=== PATIENT | male | born 1970 | race Caucasian/White ===

== ENCOUNTER 2016-06-16 19:56 | Observation (INO) | payer OTHER ==
[2016-06-16] MEDS ORDERED: NS 0.9% 1000 ML* 1,000 ML IV ONE (20:39)
[2016-06-16] MEDS ORDERED: Aspirin Low Dose CHEW TAB* 81 MG PO ONE (20:39)
[2016-06-16 20:46] LABS: Hematocrit 45 % (42-52); Hemoglobin 15.1 g/dl (14.0-18.0); Mean Corpuscular HGB Conc 34 g/dl (31-36); Mean Corpuscular Hemoglobin 31 pg (27-31); Mean Corpuscular Volume 92 fL (80-94); Mean Platelet Volume 8 um3 (7.4-10.4); Red Blood Count 4.89 10^6/ul (4.0-5.4); Red Cell Distribution Width 13 % (10.5-15); White Blood Count 10.3 10^3/ul (3.5-10.8)
[2016-06-16 20:59] LABS: ALT 36 U/L (7-52); AST 21 U/L (13-39); Albumin 4.2 g/dL (3.2-5.2); Alkaline Phosphatase 73 U/L (34-104); Anion Gap 6 mmol/L (2-11); BUN/Creatinine Ratio 11.7 (8-20); Blood Urea Nitrogen 11 mg/dL (6-24); C Reactive Protein < 1.00 mg/L (< 5.00); CO2 Carbon Dioxide 25 mmol/L (22-32); Calcium 9.3 mg/dL (8.6-10.3); Chloride 101 mmol/L (101-111); Creatine Kinase 133 U/L (10-223); EGFR African American 111.1 (>60); EGFR Non-African American 86.4 (>60); Globulin 3.1 g/dL (2-4); Glucose 106 mg/dL (70-100); Lipase 36 U/L (11.0-82.0); Magnesium 2.1 mg/dL (1.9-2.7); Potassium 3.2 mmol/L (3.5-5.0); Sodium 132 mmol/L (133-145); Total Protein 7.3 g/dL (6.4-8.9)
--- NOTE | 2016-06-16 21:01 | RAD ---
INDICATION: Chest pain COMPARISON: None TECHNIQUE: An AP portable view obtained at 2 hours is submitted. FINDINGS: Bones/Soft Tissues: There are no acute bony findings. Cardiomediastinal: The cardiomediastinal silhouette is normal. Lungs: There are no infiltrates. Pleura: There are no pleural effusions. Other: None IMPRESSION: NO ACTIVE DISEASE
[2016-06-16 21:23] LABS: TSH (Thyroid Stimulating Horm) 0.91 mcIU/mL (0.34-5.60)
[2016-06-16 21:59] LABS: Urine Bacteria 1+ (Absent); Urine Bilirubin Negative (Negative); Urine Glucose Negative (Negative); Urine Nitrite Negative (Negative)
--- NOTE | 2016-06-16 22:33 | ED ---
Feliberto Vazquez Alok, scribed for Herve Mai MD on 06/16/16 at 2030 . HPI Chest Pain - HPI Summary HPI Summary: 46 y/o male presents to the ED for CP accompanied by dizziness and SOB while at rest today at 1815. 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 Pt CP was located at the left side of his chest and felt like a burning, stabbing sensation which did not radiate to other parts of the body. Pt states nothing makes his symptoms better or worse. Pt denies nausea, diaphoresis, or edema. PMHx includes HTN and hx of WBW as well as panic attacks. PT is also an opiate user and has been clean for the past 8 days. - History of Current Complaint Chief Complaint: EDChestPainROMI Time Seen by Provider: 06/16/16 20:13 Hx Obtained From: Patient Onset/Duration: Started Hours Ago, Atraumatic, Still Present Timing: Constant Initial Severity: Moderate Current Severity: Mild Pain Intensity: 1 Pain Scale Used: 0-10 Numeric Chest Pain Location: Discrete at:, Right Anterior Chest Pain Radiates: No Character: Burning, Sharp/Stabbing Aggravating Factor(s): Nothing Alleviating Factor(s): Nothing - Allergy/Home Medications Allergies/Adverse Reactions: Allergies Allergy/AdvReac Type Severity Reaction Status Date / Time No Known Allergies Allergy Verified 11/08/12 14:08 PMH/Surg Hx/FS Hx/Imm Hx Endocrine/Hematology History: Denies: Hx Diabetes, Hx Thyroid Disease Cardiovascular History: Reports: Other Cardiovascular Problems/Disorders - WBW ( congenital heart defect) Denies: Hx Hypertension Respiratory History: Denies: Hx Asthma, Hx Chronic Obstructive Pulmonary Disease (COPD) GI History: Denies: Hx Ulcer History: Reports: Hx Kidney Stones Neurological History: Reports: 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 STENT/ESWL FOR KIDNEY STONE Infectious Disease History: No Infectious Disease History: Denies: Hx Clostridium Difficile, Hx Hepatitis, Hx Human Immunodeficiency Virus (HIV), Hx of Known/Suspected MRSA, Hx Shingles, Hx Tuberculosis, Traveled Outside the [place] in Last 30 Days - Family History Known Family History: Positive: Cardiac Disease - [place] (Brother, age 40), Other - Yes- Alcohol abuse - Social History Alcohol Use: Occasionally Substance Use Type: Reports: None Hx Tobacco Use: Yes Smoking Status (MU): Heavy Every Day Tobacco Smoker Review of Systems Negative: Fever, Skin Diaphoresis Positive: Chest Pain Positive: Shortness Of Breath Negative: Nausea Negative: Edema Neurological: Other - Dizziness All Other Systems Reviewed And Are Negative: Yes Physical Exam Triage Information Reviewed: Yes Vital Signs On Initial Exam: Initial Vitals Temp Pulse Resp BP Pulse Ox 99.1 F 78 14 135/91 97 06/16/16 20:09 06/16/16 20:09 06/16/16 20:09 06/16/16 20:09 06/16/16 20:09 Vital Signs Reviewed: Yes Appearance: Positive: Well-Appearing, No Pain Distress Skin: Positive: Warm, Skin Color Reflects Adequate Perfusion, Dry Head/Face: Positive: Normal Head/Face Inspection Eyes: Positive: EOMI, COREEN ENT: Positive: Normal ENT inspection Neck: Positive: Supple, Nontender Respiratory/Lung Sounds: Positive: Clear to Auscultation, Breath Sounds Present Cardiovascular: Positive: RRR Abdomen Description: Positive: Nontender, Soft Bowel Sounds: Positive: Present Musculoskeletal: Positive: Normal, Strength/ROM Intact Neurological: Positive: Normal, Sensory/Motor Intact, Alert, Oriented to Person Place, Time Psychiatric: Positive: Affect/Mood Appropriate Diagnostics - Vital Signs Vital Signs Temp Pulse Resp BP Pulse Ox 06/16/16 20:09 99.1 F 86 14 135/91 98 - Laboratory Lab Results: Lab Results 06/16/16 06/16/16 06/16/16 Range/Units 20:25 20:25 20:25 WBC 10.3 (3.5-10.8) 10^3/ul RBC 4.89 (4.0-5.4) 10^6/ul Hgb 15.1 (14.0-18.0) g/dl Hct 45 (42-52) % MCV 92 (80-94) fL MCH 31 (27-31) pg MCHC 34 (31-36) g/dl RDW 13 (10.5-15) % Plt Count 228 (150-450) 10^3/ul MPV 8 (7.4-10.4) um3 Neut % (Auto) 67.8 (38-83) % Lymph % (Auto) 25.5 (25-47) % [place] % (Auto) 5.0 (1-9) % Eos % (Auto) 1.1 (0-6) % Baso % (Auto) 0.6 (0-2) % Absolute Neuts (auto) 7.0 (1.5-7.7) 10^3/ul Absolute Lymphs (auto) 2.6 (1.0-4.8) 10^3/ul Absolute Monos (auto) 0.5 (0-0.8) 10^3/ul Absolute Eos (auto) 0.1 (0-0.6) 10^3/ul Absolute Basos (auto) 0.1 (0-0.2) 10^3/ul Absolute Nucleated RBC 0.01 10^3/ul Nucleated RBC % 0 INR (Anticoag Therapy) 0.92 (0.89-1.11) APTT 31.2 (26.0-36.3) seconds D-Dimer, Quantitative < 200 (Less Than 230) ng/mL Sodium 132 L (133-145) mmol/L Potassium 3.2 L (3.5-5.0) mmol/L Chloride 101 (101-111) mmol/L Carbon Dioxide 25 (22-32) mmol/L Anion Gap 6 (2-11) mmol/L BUN 11 (6-24) mg/dL Creatinine 0.94 (0.67-1.17) mg/dL Est GFR ( Amer) 111.1 (>60) Est GFR (Non-Af Amer) 86.4 (>60) BUN/Creatinine Ratio 11.7 (8-20) Glucose 106 H (70-100) mg/dL Lactic Acid (0.5-2.0) mmol/L Calcium 9.3 (8.6-10.3) mg/dL Magnesium 2.1 (1.9-2.7) mg/dL Total Bilirubin 0.30 (0.2-1.0) mg/dL AST 21 (13-39) U/L ALT 36 (7-52) U/L Alkaline Phosphatase 73 (34-104) U/L Total Creatine Kinase 133 (10-223) U/L CK-MB (CK-2) 1.0 (0.6-6.3) ng/mL Troponin I 0.00 (<0.04) ng/mL C-Reactive Protein < 1.00 (< 5.00) mg/L Total Protein 7.3 (6.4-8.9) g/dL Albumin 4.2 (3.2-5.2) g/dL Globulin 3.1 (2-4) g/dL Albumin/Globulin Ratio 1.4 (1-3) Lipase 36 (11.0-82.0) U/L TSH 0.91 (0.34-5.60) mcIU/mL Urine Color Urine Appearance Urine pH (5-9) Ur Specific [place] (1.010-1.030) Urine Protein (Negative) Urine Ketones (Negative) Urine Blood (Negative) Urine Nitrate (Negative) Urine Bilirubin (Negative) Urine Urobilinogen (Negative) Ur Leukocyte Esterase (Negative) Urine WBC (Auto) (Absent) Urine RBC (Auto) (Absent) Ur Squamous Epith Cells (Absent) Urine Bacteria (Absent) Urine Glucose (Negative) 06/16/16 06/16/16 Range/Units 20:25 21:40 WBC (3.5-10.8) 10^3/ul RBC (4.0-5.4) 10^6/ul Hgb (14.0-18.0) g/dl Hct (42-52) % MCV (80-94) fL MCH (27-31) pg MCHC (31-36) g/dl RDW (10.5-15) % Plt Count (150-450) 10^3/ul MPV (7.4-10.4) um3 Neut % (Auto) (38-83) % Lymph % (Auto) (25-47) % [place] % (Auto) (1-9) % Eos % (Auto) (0-6) % Baso % (Auto) (0-2) % Absolute Neuts (auto) (1.5-7.7) 10^3/ul Absolute Lymphs (auto) (1.0-4.8) 10^3/ul Absolute Monos (auto) (0-0.8) 10^3/ul Absolute Eos (auto) (0-0.6) 10^3/ul Absolute Basos (auto) (0-0.2) 10^3/ul Absolute Nucleated RBC 10^3/ul Nucleated RBC % INR (Anticoag Therapy) (0.89-1.11) APTT (26.0-36.3) seconds D-Dimer, Quantitative (Less Than 230) ng/mL Sodium (133-145) mmol/L Potassium (3.5-5.0) mmol/L Chloride (101-111) mmol/L Carbon Dioxide (22-32) mmol/L Anion Gap (2-11) mmol/L BUN (6-24) mg/dL Creatinine (0.67-1.17) mg/dL Est GFR ( Amer) (>60) Est GFR (Non-Af Amer) (>60) BUN/Creatinine Ratio (8-20) Glucose (70-100) mg/dL Lactic Acid 0.8 (0.5-2.0) mmol/L Calcium (8.6-10.3) mg/dL Magnesium (1.9-2.7) mg/dL Total Bilirubin (0.2-1.0) mg/dL AST (13-39) U/L ALT (7-52) U/L Alkaline Phosphatase (34-104) U/L Total Creatine Kinase (10-223) U/L CK-MB (CK-2) (0.6-6.3) ng/mL Troponin I (<0.04) ng/mL C-Reactive Protein (< 5.00) mg/L Total Protein (6.4-8.9) g/dL Albumin (3.2-5.2) g/dL Globulin (2-4) g/dL Albumin/Globulin Ratio (1-3) Lipase (11.0-82.0) U/L TSH (0.34-5.60) mcIU/mL Urine Color Yellow Urine Appearance Clear Urine pH 6.0 (5-9) Ur Specific [place] 1.006 L (1.010-1.030) Urine Protein Negative (Negative) Urine Ketones Negative (Negative) Urine Blood Negative (Negative) Urine Nitrate Negative (Negative) Urine Bilirubin Negative (Negative) Urine Urobilinogen Negative (Negative) Ur Leukocyte Esterase 2+ H (Negative) Urine WBC (Auto) 2+(11-20/hpf) H (Absent) Urine RBC (Auto) 1+(3-5/hpf) H (Absent) Ur Squamous Epith Cells Present H (Absent) Urine Bacteria 1+ H (Absent) Urine Glucose Negative (Negative) Result Diagrams: 06/16/16 20:25 06/16/16 20:25 Lab Statement: Any lab studies that have been ordered have been reviewed, and results considered in the medical decision making process. - Radiology CXR Xray Interpretation: Positive (See Comments) - IMPRESSION: NO ACTIVE DISEASE. Radiology Interpretation Completed By: Radiologist - EKG 2019 Cardiac Rate: NL - 81 bpm EKG Rhythm: Sinus Rhythm ST Segment: Normal Ectopy: None Re-Evaluation - Re-Evaluation First Eval Re-Evaluation Time: 22:18 Chest Pain Course/Dx - Course Course Of Treatment: NO CRITICAL CARE TIME Assessment/Plan: CHEST PAIN FREE IN ED. ADMIT HOSPITALIST STABLE. - Diagnoses Provider Diagnoses: Chest pain - Provider Notifications Discussed Care Of Patient With: Dr. Chavez (Hospitalist) @ 3495 Discharge - Discharge Plan Condition: Stable Disposition: ADMITTED TO [facility] Referrals: No Primary Care Phys,NOPCP [Primary Care Provider] - The documentation as recorded by the Feliberto pang Alok accurately reflects the service I personally performed and the decisions made by me, Herve Mai MD.
[2016-06-16] MEDS ORDERED: Acetaminophen SUPP* 650 MG SUPP PR PRN (23:00)
[2016-06-17 03:48] LABS: HDL Cholesterol 23.4 mg/dL
[2016-06-17] MEDS ORDERED: Heparin VIAL(*) 5000 UNITS/ML VIAL (FIVE THOUSAND) SUBCUT SCH (06:00)
[2016-06-17 08:32] VITALS: BP 118/77
--- NOTE | 2016-06-17 09:41 | ECHO ---
Patient: NOÉ POTTER [facility] Rec#: [id number] : 1970 Date: 06/17/2016 Age: 46y Height: 167.64 cm / 66.0 in Weight: 68.95 kg / 152.0 lbs Sex: M BSA: 1.78 Room#: 452 Admit Date#: 06/16/2016 Type: Inpatient Referring: Sony Chavez MD Reading: Sammy Espana DO Organizational Psychologist: Meseret Singh RDCS Organizational Psychologist: Sonya Lr CC: Britney Lynn MD Transthoracic Echocardiogram Indication: Chest Pain BP: 111/72 HR: 61 Rhythm: NSR Findings History: HTN, WPW, opiate use, smoker. Technical Comments: The study quality is good. The study is technically limited due to the patient's smoking history. Completed at 0830. Left Ventricle: The left ventricular chamber size is normal. There is no left ventricular hypertrophy. Global left ventricular wall motion and contractility are within normal limits. There is normal left ventricular systolic function. The estimated ejection fraction is 55-60%. Normal left ventricular diastolic filling is observed. Left Atrium: The left atrial chamber size is normal. Right Ventricle: The right ventricular chamber size and systolic function are within normal limits. Right Atrium: The right atrial cavity size is normal. Aortic Valve: The aortic valve is trileaflet. There is no evidence of aortic valve thickening. There is no evidence of aortic regurgitation. There is no evidence of aortic stenosis. Mitral Valve: The mitral valve appears normal in structure and function. There is a trace of mitral regurgitation. There is no evidence of mitral stenosis. Tricuspid Valve: The tricuspid valve leaflets are normal. There is mild tricuspid regurgitation. No pulmonary hypertension is noted. There is no tricuspid stenosis. Pulmonic Valve: The pulmonic valve appears normal. There is no evidence of pulmonic regurgitation. There is no pulmonic stenosis. Pericardium: There is no significant pericardial effusion. Aorta: There is no dilatation of the ascending aorta. There is no dilatation of the aortic arch. There is no dilation of the aortic root. Pulmonary Artery: The main pulmonary artery is not well visualized. Venous: The inferior vena cava appears normal in size. There is a greater than 50% respiratory change in the inferior vena cava dimension. Conclusions The left ventricular chamber size is normal. There is normal left ventricular systolic function. The estimated ejection fraction is 55-60%. Global left ventricular wall motion and contractility are within normal limits. The left atrial chamber size is normal. The right ventricular chamber size and systolic function are within normal limits. There is centrally directed mild tricuspid regurgitation. Cardiac valves appear normal on transthoracic imaging. This is a good quality study. No prior echocardiograms available for comparison at time of interpretation. Measurements Name Value Normal Range RVIDd (AP) 2D 2.8 cm (0.9 - 2.6) RVDdMajor (2D) 3.8 cm (2.2 - 4.4) RAd ISD 4CH 4.1 cm (3.4 - 4.9) RA (A4C)W 4.3 cm (2.9 - 4.6) IVSd (2D) 1 cm (0.6 - 1) LVPWd (2D) 0.7 cm (0.6 - 1) LVIDd (2D) 5.36 cm (3.6 - 5.4) LVIDs (2D) 3.7 cm - LV FS (2D) 31 % (25 - 45) Aortic Annulus 2 cm (1.4 - 2.6) Ao root diameter (2D) 3.3 cm (2.1 - 3.5) Ascending Ao 2.8 cm (2.1 - 3.4) Aortic arch 2.8 cm (1.8 - 3.4) LA dimension (AP) 2D 3.3 cm (2.3 - 3.8) LAd ISD 4CH 5.1 cm (2.9 - 5.3) LA ISD 4CH W 4.1 cm (2.5 - 4.5) Name Value Normal Range LA ESV SP 4CH (A/L) 41 ml - LA ESV SP 2CH (A/L) 58 ml - LA ESV BP (A/L) 49 ml - LA ESV BP (A/L) index 27.7 ml/m2 - LA ESV SP 4CH (MOD) 39 ml - LA ESV SP 2CH (MOD) 52 ml - Name Value Normal Range MV E-wave Vmax 0.53 m/sec - MV deceleration time 286 msec - MV A-wave Vmax 0.37 m/sec - MV E:A ratio 1.42 ratio - LV septal e' Vmax 0.1 m/sec - LV lateral e' Vmax 0.12 m/sec - LV E:e' septal ratio 5.3 ratio - LV E:e' lateral ratio 4.42 ratio - Name Value Normal Range AV Vmax 1.2 m/sec - AV VTI 25.3 cm - AV peak gradient 5.76 mmHg - AV mean gradient 3.75 mmHg - LVOT Vmax 1 m/sec - LVOT VTI 18.95 cm - LVOT peak gradient 3.79 mmHg - LVOT mean gradient 1.84 mmHg - LILA Vmax 0.6 m/sec - Name Value Normal Range TR Vmax 2.5 m/sec - TR peak gradient 25 mmHg - RAP 3 mmHg - RVSP 28 mmHg - IVC diameter 1.3 cm - Name Value Normal Range PV Vmax 0.76 m/sec - PV peak gradient 2.33 mmHg -
--- NOTE | 2016-06-17 11:28 | RAD ---
Edited for charges. INDICATION: Chest pain. COMPARISON: There are no prior studies available for comparison. Technique: A single day myocardial perfusion stress study was performed. Initially a resting study was performed. The patient was given an intravenous injection of 10.3 mCi of technetium 99m tetrofosmin and and the heart was imaged in multiple projections. The patient returned later in the day and under the direction of Dr. Osorio, the patient was exercised to a peak heart rate of 167 beats per minute which was 96% of the maximum predicted heart rate. Subsequently the patient was given intravenous injection of 25.6 mCi of technetium 99m tetrofosmin and the heart was imaged in multiple projections. Images were reconstructed in the axial, sagittal and coronal planes and in a 3- D format. FINDINGS: There appears to be normal wall motion and myocardial thickening. The left ventricular ejection fraction was calculated to be 65%. Review of the images demonstrates normal distribution of radiopharmaceutical. IMPRESSION: NO EVIDENCE FOR INFARCT OR ISCHEMIA. ASSESSMENT: Low risk Based on imaging criteria from ACC/AHA 2002 Guideline Update for the Management of Patients With Chronic Stable Angina Table 23. Noninvasive Risk Stratification. MTDD
--- NOTE | 2016-06-17 11:29 | DCNOTE ---
Patient seen this morning. Says he feels well. Symptoms resolved shortly after coming up to the floor last night and have not recurred. States chest pain was pleuritic in nature. Says he gets panic attacks at times which result in SOB which he had yesterday but the CP is unusual. On exam, middle-aged M, laying in bed in NAD, poor dentition, RRR, s1 and s2 present, no m/g/r, lungs CTA B/L, no w/r/r, no LE edema. Echo unremarkable, troponin WNL, stress test was negative. Answered all of patient's and daughter's questions. Plan to discharge home today. Counseled on smoking cessation. F/U with PCP as outpatient.
--- NOTE | 2016-06-17 14:03 | HP ---
HISTORY AND PHYSICAL: DATE OF ADMISSION: 06/16/16 CHIEF COMPLAINT: Chest pain. HISTORY OF PRESENT ILLNESS: The patient is a 46-year-old, who says a couple of weeks ago, he had some chest pain, but eventually went away, so he did not think much of it. He has been feeling off as he puts it recently as well. In fact, he went to his PCP, who ended up saying his blood pressure was high and he was put on lisinopril a couple of days ago. After work today, he got home and at 6 p.m., he has felt he had chest pain and could not breathe. He has a history of panic attacks and thought it could be that. He tried to relax and it went away, but came back. The chest pain went to his left arm and neck. He went to the bedroom to get comfortable, but it did not get any better. It was 5 -6/10 in severity. He also had trouble breathing. He got 4 baby aspirin and does not recall getting any nitroglycerin, but says his pain eventually went away. He says the pain does increase with deep breathing, however, and he has no nausea or vomiting. PAST MEDICAL HISTORY: Significant for hypertension, recent diagnosis of nephrolithiasis, and depression. CURRENT MEDICATIONS: Include: 1. Lisinopril/hydrochlorothiazide 20/12.5. 2. Zoloft 50 mg a day. ALLERGIES: He has no known drug allergies. FAMILY HISTORY: Mother is alive, has diabetes. Father is in a penitentiary, has [place]'s. SOCIAL HISTORY: He smokes 1-1/2 packs a day for about 30 years. No alcohol. He has shot up narcotics including morphine, most recently 2 weeks ago. He works in . He is a . He has 1 daughter. REVIEW OF SYSTEMS: A 14-point review of systems was completed with the patient. All pertinent positives and negatives are in the history of present illness, otherwise negative. PHYSICAL EXAMINATION GENERAL: Pleasant gentleman, lying in bed, in no acute distress. VITAL SIGNS: Temperature 98.4 degrees, heart rate 74 beats per minute, respiratory rate 18 breaths per minute, pulse ox 97%, and blood pressure 111/72. HEENT: Normocephalic, atraumatic. Pupils equal, round, and reactive to light. Moist mucous membranes. NECK: Supple. No JVD, bruits, palpable thyroid, or lymphadenopathy. CHEST: Clear to auscultation and percussion bilaterally. CARDIOVASCULAR: S1, S2 appreciated. ABDOMEN: Positive bowel sounds in all 4 quadrants. Soft, nontender, and nondistended. EXTREMITIES: No cyanosis, clubbing, or edema. +2 peripheral pulses bilaterally. NEURO: Alert and oriented x3. Moves all extremities. SKIN: No rashes or abnormalities. DIAGNOSTIC STUDIES/LAB DATA: White count 10.3, hemoglobin 15.1, hematocrit 45 , and platelets 228. Sodium 132, potassium 3.2, chloride 101, CO2 25, BUN 11, creatinine 0.94, and glucose 106. Troponin is 0. INR is 2.92. D-dimer is less than 200. Urinalysis has +2 leukocyte esterase, +2 wbc's. Chest x-ray was interpreted by Radiology as no active disease. EKG shows normal sinus rhythm at 81 beats per minute, normal axis, and no acute ST- T wave changes. ASSESSMENT AND PLAN: 1. Chest pain: I think it is unlikely cardiac, but he is a smoker and he has hypertension. I will rule him out by cycling his troponins, check a lipid profile in the morning, and schedule a nuclear stress test as well. He does shoot up, I will also get an echocardiogram. I think it is unlikely to be revealing. If all is negative, he should be able to be discharged later today. 2. Hypertension: Continue current regimen. 3. Depression: Continue Zoloft. 4. FEN: N.P.O. awaiting stress test. 5. DVT prophylaxis: Heparin subcu. 6. The patient is a full code. TIME SPENT: Over 75 minutes was spent on this H and P; more than 40 minutes of which was spent in direct [id number] contact with the patient in evaluation, physical exam, counseling, and coordination of care. CC: Dr. Britney Lynn* [id number]/CPS #: [id number]
--- NOTE | 2016-06-18 06:13 | DS ---
CC: Dr. Lynn DISCHARGE SUMMARY: DATE OF ADMISSION: 06/16/16 DATE OF DISCHARGE: 06/17/16 PRIMARY CARE PHYSICIAN: Britney Lynn MD PRINCIPAL DISCHARGE DIAGNOSIS: Chest pain. SECONDARY DIAGNOSES: 1. Hypertension. 2. Narcotic abuse. 3. Depression. DISCHARGE MEDICATION REGIMEN: 1. Lisinopril 12.5 mg by mouth daily. 2. Zoloft 50 mg by mouth daily. STUDIES DONE DURING HOSPITALIZATION: Nuclear cardiac stress test, impression: No evidence for infa rct or ischemia. Assessment: Low-risk. Transthoracic echocardiogram, conclusion: Left ventricular chamber size is normal, left ventricular systolic function is normal, estimated ejection fraction is 55% to 60%, global left ventricular wal l motion contractility within normal limits, left atrial chamber size is normal, right ventricular c hamber and systolic function is within normal limits, and there is centrally directed mild tricuspid regurgitation, cardiac valves appear normal on transthoracic imaging. Chest x-ray, impression: No active disease. HPI AND HOSPITAL SUMMARY: Please see the full history and physical by Dr. Sony Chavez for full deta ils. Briefly, Mr. Hyde is a 46-year-old male with past medical history as above who presented to the hospital with chest pain and shortness of breath. The patient's symptoms lasted for about 45 mi nutes to an hour and stated it was somewhat similar to his normal panic attacks as far as the shortn ess of breath goes; however, they are usually not associated with chest pain. The patient was placed on branch director, troponins were trended, and remained negative. He underwent an echocardiogra m and nuclear stress test as above, which were both unremarkable. The patient's pain resolved in [facility] and did not reoccur. He will be discharged home without any changes with medications and was instructed to stop smoking and to follow up with his PCP as an outpatient. TIME SPENT: Total time spent on this discharge, 35 minutes. This is just a summary of the hospitalization, please see the full medical records for further detai ls. [id number]/[facility] #: [id number]
== END 2016-06-17 12:05 | disposition home or self-care (01) ==
LOC: ED 19:56 → MEDTELE 23:03
PROVIDERS: ADMIT Internal Medicine; ATTEND Hospitalist
DX: R07.9 Chest pain, unspecified (principal); R06.02 Shortness of breath; I10 Essential (primary) hypertension; F11.20 Opioid dependence, uncomplicated; F32.9 Major depressive disorder, single episode, unspecified; F17.210 Nicotine dependence, cigarettes, uncomplicated; Z79.899 Other long term (current) drug therapy
CPT/HCPCS: 36415; 71010; 78452; 80053; 80061; 81003; 81015; 82550; 82553; 83605; 83690; 83735; 84443; 84484; 85025; 85379; 85610; 85730; 86140; 87086; 93005; 93017; 93306; 96360; 96361; 96372; 99285; A9502; G0378; J1644

== ENCOUNTER 2017-12-05 11:17 | Emergency (ER) | payer OTHER ==
[2017-12-05] MEDS ORDERED: Nitroglycerin TAB 0.4 MG* 0.4 MG TAB SL ONE (12:03)
[2017-12-05] MEDS ORDERED: Aspirin 81 mg CHEW TAB* 81 MG TAB.CHEW PO ONE (12:04)
[2017-12-05] MEDS ORDERED: Aspirin 81 mg CHEW TAB* 81 MG TAB.CHEW ONE (12:05)
--- NOTE | 2017-12-05 12:10 | UC ---
Cardiac HPI - HPI Summary HPI Summary: Comes in complaining of sharp left-sided chest pain that started this morning on the shower. Over the past few weeks patient has had overall malaise complaining of intermittent shortness of breath, palpitations, sweats and dizziness. Pain is going down his left arm a bit. Has a history of substance use but states clean for almost one year. Also has a history of anxiety and thinks it may be just this. - History of Current Complaint Chief Complaint: UCChestPain Stated Complaint: SOB CHEST PAIN DIZZY Time Seen by Provider: 12/05/17 11:25 Hx Obtained From: Patient Onset/Duration: Sudden Onset, Lasting Hours, Still Present Initial Severity: Moderate Current Severity: Moderate Pain Intensity: 1 Chest Pain Location: Left Anterior Character: Sharp/Stabbing Aggravating Factor(s): Exertion, Movement, Deep Breaths Alleviating Factor(s): Rest Associated Signs & Symptoms: Positive: Chest Pain, Anxiety, Dizziness, SOB, Diaphoresis - Allergy/Home Medications Allergies/Adverse Reactions: Allergies Allergy/AdvReac Type Severity Reaction Status Date / Time No Known Allergies Allergy Verified 12/05/17 11:53 Home Medications: Home Medications Buprenorphine/Naloxone SL TAB* [Suboxone 8-2 mg SL TAB*] 1 tab.sl SL DAILY 12/05 [History Confirmed 12/05/17] Lisinopril/HCTZ 20/12.5(NF) [Zestoretic 20/12.5(NF)] 1 tab PO DAILY 12/05/17 [ History Confirmed 12/05/17] Propranolol TAB* [Inderal TAB*] 20 mg PO DAILY 12/05/17 [History Confirmed 12/05] Venlafaxine EXT RELEASE CAP* [Effexor Xr CAP*] 37.5 mg PO DAILY 12/05/17 [ History Confirmed 12/05/17] PMH/Surg Hx/FS Hx/Imm Hx Cardiovascular History: Cardiac Disease - WPW S/P ABLATION 1996, Hypertension Psychological History: Anxiety - Surgical History Surgical History: Yes Surgery Procedure, Year, and Place: HEART SURGERY. STENT/ESWL FOR KIDNEY STONE - Family History Known Family History: Positive: Cardiac Disease - [place] (Brother, age 40), Other - Yes- Alcohol abuse - Social History Alcohol Use: Daily Alcohol Amount: 2 beers/ day Substance Use Type: None Substance Use Comment - Amount & Last Used: Marijuana rarely, COFFEE about 8 MUGS/DAILY Smoking Status (MU): Heavy Every Day Tobacco Smoker Type: Cigarettes Amount Used/How Often: 1/pack day Have You Smoked in the Last Year: Yes Review of Systems Constitutional: Negative Respiratory: Shortness Of Breath Cardiovascular: Palpitations, Chest Pain Gastrointestinal: Negative All Other Systems Reviewed And Are Negative: Yes Physical Exam Triage Information Reviewed: Yes Appearance: Well-Appearing, No Pain Distress, Well-Nourished Vital Signs: Initial Vital Signs Temp 98.4 F 12/05/17 11:57 Pulse 84 12/05/17 11:57 Resp 18 12/05/17 11:57 BP 146/98 12/05/17 11:57 Pulse Ox 98 12/05/17 11:57 Vital Signs Reviewed: Yes Eyes: Positive: Conjunctiva Clear ENT: Positive: Hearing grossly normal Neck: Positive: Supple Respiratory Exam: Normal Cardiovascular Exam: Normal Abdomen Description: Positive: Nontender, Soft Musculoskeletal: Positive: No Edema Neurological: Positive: Alert Psychological: Positive: Age Appropriate Behavior Skin: Negative: rashes Diagnostics - EKG Cardiac Rate: NL - 77bpm Cardiac Rhythm: Sinus: Normal Ectopy: None ST Segment: Normal EKG Comparison: No Significant Change - Assessment/Plan Course Of Treatment: TO [facility] [place] ED BY AMBULANCE. 0.4MG NTG, 324MG ASA GIVEN. PIV PLACED. EKG UNCHANGED FROM PREVIOUS. - Clinical Impression Provider Diagnoses: CHEST PAIN - Physician Notifications Discussed Patient Care With: Divina Modi - TO [facility] [place] ED BY AMBULANCE Time Discussed With Above Provider: 12:10 Instructed by Provider To: MD Will See In ED Discharge - Sign-Out/Discharge Documenting (check all that apply): Patient Departure All imaging exams completed and their final reports reviewed: No Studies - Discharge Plan Condition: Stable Disposition: TRANS HIGHER LVL OF CARE FAC Referrals: Stephenie Martinez MD [Primary Care Provider] - - Billing Disposition and Condition Condition: STABLE Disposition: Trans Higher Lvl of Care Fac
[2017-12-05 12:24] VITALS: BP 133/96
== END 2017-12-05 12:29 | disposition short-term general hospital (02) ==
LOC: UCEAST 11:17
DX: R07.89 Other chest pain (principal); R42 Dizziness and giddiness; R06.02 Shortness of breath; R61 Generalized hyperhidrosis; F41.9 Anxiety disorder, unspecified; I45.6 Pre-excitation syndrome; I10 Essential (primary) hypertension; Z82.49 Family history of ischemic heart disease and other diseases of the circulatory system; F17.210 Nicotine dependence, cigarettes, uncomplicated
CPT/HCPCS: 93005; 99213; A9270-GY; G0463

== ENCOUNTER 2017-12-05 12:44 | Emergency (ER) | payer OTHER ==
--- NOTE | 2017-12-05 13:19 | ED ---
HPI Chest Pain - HPI Summary HPI Summary: This patient is a 47 year old M presenting to [facility] with a chief complaint of chest pain that feels like a pulled muscle since 08:30 this morning. Symptoms aggravated by deep breaths. Symptoms alleviated by lying down. Patient reports difficulty breathing the past few days, dyspnea, and fingers tingling on left side. He has not traveled anywhere recently. Pt has a PMHx of anxiety. - History of Current Complaint Chief Complaint: EDChestPainROMI Time Seen by Provider: 12/05/17 12:52 Hx Obtained From: Patient Onset/Duration: Started Hours Ago - 08:30 this morning, Still Present Timing: Constant Pain Intensity: 0 Chest Pain Location: Left Anterior Chest Pain Radiates: No Character: Dyspnea at Exertion Aggravating Factor(s): Deep Breaths Alleviating Factor(s): Position Associated Signs and Symptoms: Positive: Chest Pain - "feels like a pulled muscle," difficulty breathing the past few days, dyspnea, and fingers tingling on left side - Allergy/Home Medications Allergies/Adverse Reactions: Allergies Allergy/AdvReac Type Severity Reaction Status Date / Time No Known Allergies Allergy Verified 12/05/17 11:53 PMH/Surg Hx/FS Hx/Imm Hx Endocrine/Hematology History: Denies: Hx Diabetes, Hx Thyroid Disease Cardiovascular History: Reports: Hx Angina, Hx Hypertension, Other Cardiovascular Problems/Disorders - WBW (congenital heart defect) Respiratory History: Denies: Hx Asthma, Hx Chronic Obstructive Pulmonary Disease (COPD) GI History: Denies: Hx Ulcer History: Reports: Hx Kidney Stones Sensory History: Reports: Hx Hearing Problem - Pt. 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 STENT/ESWL FOR KIDNEY STONE - Immunization History Immunizations Up to Date: Yes Infectious Disease History: Yes Infectious Disease History: Reports: Hx Hepatitis - C Denies: Hx Clostridium Difficile, Hx Human Immunodeficiency Virus (HIV), Hx of Known/Suspected MRSA, Hx Shingles, Hx Tuberculosis, Traveled Outside the [place] in Last 30 Days - Family History Known Family History: Positive: Cardiac Disease - [place] (Brother, age 40), Other - Yes- Alcohol abuse - Social History Occupation: Unemployed Lives: With Family Alcohol Use: Daily Alcohol Amount: 2 beers/ day Substance Use Type: Reports: None Substance Use Comment - Amount & Last Used: Marijuana rarely, COFFEE about 8 MUGS/DAILY Hx Tobacco Use: Yes Smoking Status (MU): Heavy Every Day Tobacco Smoker Type: Cigarettes Amount Used/How Often: 1/pack day Have You Smoked in the Last Year: Yes Review of Systems Positive: Chest Pain - "feels like a pulled muscle" Positive: Other - Dyspnea and difficulty breathing the past few days Neurological: Other - Finger tingling on left side All Other Systems Reviewed And Are Negative: Yes Physical Exam - Summary Physical Exam Summary: Appearance: The patient is well-nourished in no acute distress and in no acute pain. Skin: The skin is warm and dry and skin color reflects adequate perfusion. HEENT: The head is normocephalic and atraumatic. The pupils are equal and reactive. The conjunctivae are clear and without drainage. Nares are patent and without drainage. Mouth reveals moist mucous membranes and the throat is without erythema and exudate. The external ears are intact. The ear canals are patent and without drainage. The tympanic membranes are intact. Neck: The neck is supple with full range of motion and non-tender. There are no carotid bruits. There is no neck vein distension. Respiratory: Chest is non-tender. Lungs are clear to auscultation and breath sounds are symmetrical and equal. Cardiovascular: Heart is regular rate and rhythm. There is no murmur or rub auscultated. There is no peripheral edema and pulses are symmetrical and equal. Abdomen: The abdomen is soft and non-tender. There are normal bowel sounds heard in all four quadrants and there is no organomegaly palpated. Musculoskeletal: There is no back tenderness noted. Extremities are non-tender with full range of motion. There is good capillary refill. There is no peripheral edema or calf tenderness elicited. Neurological: Patient is alert and oriented to person, place and time. The patient has symmetrical motor strength in all four extremities. Cranial nerves are grossly intact. Deep tendon reflexes are symmetrical and equal in all four extremities. Psychiatric: The patient has an appropriate affect and does not exhibit any anxiety or depression. Triage Information Reviewed: Yes Vital Signs On Initial Exam: Initial Vitals Temp Pulse Resp BP Pulse Ox 98.3 F 63 16 114/96 97 12/05/17 13:00 12/05/17 13:00 12/05/17 13:00 12/05/17 13:00 12/05/17 13:00 Vital Signs Reviewed: Yes Diagnostics - Vital Signs Vital Signs Temp Pulse Resp BP Pulse Ox 12/05/17 13:00 98.3 F 63 16 114/96 97 - Laboratory Result Diagrams: 12/05/17 13:30 12/05/17 13:30 Lab Statement: Any lab studies that have been ordered have been reviewed, and results considered in the medical decision making process. - Radiology Chest X-Ray Radiology Interpretation Completed By: Radiologist - 13:45. NO ACTIVE CARDIOPULMONARY DISEASE. ED Physician has reviewed this imaging report. - EKG 13:20 Cardiac Rate: NL - 62 BPM EKG Rhythm: Sinus Rhythm ST Segment: Normal EKG Interpretation: Normal sinus rhythm, normal ST, no ectopy, no STEMI Chest Pain Course/Dx - Course Course Of Treatment: Mr. Hyde presented with a left-sided chest pain since 10 26 this morning. It was exacerbated by deep breaths and had no associated symptoms. He was stable and nontoxic in appearance here and kept on the monitor while labs were obtained including a delayed troponin and a d-dimer. These were all WNL and his EKG was unremarkable. This is likely a musculoskeletal pain and I recommended follow-up and symptomatic treatment. - Diagnoses Provider Diagnoses: Chest pain Discharge - Sign-Out/Discharge Documenting (check all that apply): Patient Departure - Discharge Plan Condition: Stable Disposition: HOME Patient Education Materials: Chest Pain (ED) Referrals: Stephenie Martinez MD [Primary Care Provider] - 3 Days Additional Instructions: Follow up with your Primary Care Provider in 1-3 days. Return to the ED if symptoms worsen. - Billing Disposition and Condition Condition: STABLE Disposition: Home - Attestation Statements Document Initiated by Arvind: Yes Documenting Scribe: Glen Montero Provider For Whom Arvind is Documenting (Include Credential): Alexis Herr MD Scribe Attestation: Glen Vazquez scribed for Alexis Herr MD on 12/05/17 at 1830. Scribe Documentation Reviewed: Yes Provider Attestation: The documentation as recorded by the Mamie pangan Montero accurately reflects the service I personally performed and the decisions made by me, Alexis Herr MD
[2017-12-05 13:37] LABS: ABS Basophils 0.1 10^3/ul (0-0.2); ABS Eosinophils 0.2 10^3/ul (0-0.6); ABS Lymphocytes 1.8 10^3/ul (1.0-4.8); ABS Monocytes 0.5 10^3/ul (0-0.8); ABS Neutrophils 6.2 10^3/ul (1.5-7.7); ABS Nucleated RBC 0 10^3/ul; Eosinophil % 1.8 % (0-6); Hematocrit 41 % (42-52); Hemoglobin 14.1 g/dl (14.0-18.0); Mean Corpuscular HGB Conc 35 g/dl (31-36); Mean Corpuscular Hemoglobin 34 pg (27-31); Mean Corpuscular Volume 96 fL (80-94); Mean Platelet Volume 7.6 um3 (7.4-10.4); Nucleated Red Blood Cells % 0; Platelet Count 217 10^3/ul (150-450); Red Blood Count 4.23 10^6/ul (4.00-5.40); Red Cell Distribution Width 13 % (10.5-15); White Blood Count 8.8 10^3/ul (3.5-10.8)
--- NOTE | 2017-12-05 13:48 | RAD ---
HISTORY: CP COMPARISONS: November 13, 2017 VIEWS: 1: frontal AP view of the chest at 1:37 PM FINDINGS: LINES AND TUBES: None. CARDIOMEDIASTINAL SILHOUETTE: The cardiomediastinal silhouette is normal for portable technique. PLEURA: The costophrenic angles are sharp. No pleural abnormalities are noted. LUNG PARENCHYMA: The lungs are clear. ABDOMEN: The upper abdomen is clear. There is no subphrenic gas. BONES AND SOFT TISSUES: No bone or soft tissue abnormalities are noted. IMPRESSION: NO ACTIVE CARDIOPULMONARY DISEASE.
[2017-12-05 13:57] LABS: EGFR Non-African American 95.3 (>60)
[2017-12-05 17:27] VITALS: BP 135/87
== END 2017-12-05 17:26 | disposition home or self-care (01) ==
LOC: ED 12:44
DX: R07.89 Other chest pain (principal); R06.00 Dyspnea, unspecified; R20.2 Paresthesia of skin; Z82.49 Family history of ischemic heart disease and other diseases of the circulatory system; F12.10 Cannabis abuse, uncomplicated
CPT/HCPCS: 36415; 71045; 80053; 82550; 83605; 83880; 84484; 85025; 85379; 93005; 99283